=== PATIENT | female | born 1955 | race Caucasian/White ===

== ENCOUNTER → 2018-06-04 10:47 | Outpatient (CLI) | payer OTHER, MEDICAID, SELFPAY ==
--- NOTE | 2018-06-04 | DI.US.S_ITS ---
PROCEDURE: US PELVIC COMPLETE INDICATIONS: PAIN IN PELVIS TECHNIQUE: Real-time scanning was performed of the pelvic organs, with image documentation. Additional endovaginal scanning was necessary due to incomplete visualization of the adnexal and endometrial structures by transabdominal scanning. COMPARISON: None. FINDINGS: Transabdominal scanning: Limited scanning through the kidneys shows no hydronephrosis. No pathologic free abdominal or pelvic fluid. Endovaginal scanning: Uterus: Uterus is normal in size at 5.7 x 2.0 x 3.3 cm. The endometrium measures 2.3 mm in combined thickness. Ovaries: Right are not visualized. Normal left ovary measuring 2.7 x 1.2 x 1.1 cm. IMPRESSION: No source for pelvic pain identified. Dictated by: Davidson King [facility] Interpreted: Zac Metzger MD on 06/04/2018 at 12:55 Approved by: Zac Metzger M.D. on 06/04/2018 at 13:14
== END ==
PROVIDERS: PCP Physician Assistant Medical; Visit Provider Physician Assistant
DX: R10.2 Pelvic and perineal pain (principal)
CPT/HCPCS: 76830; 76856

== ENCOUNTER → 2021-02-01 15:08 | Outpatient (CLI) | payer MEDICARE, OTHER, SELFPAY ==
--- NOTE | 2021-02-01 | DI.US.S_ITS ---
PROCEDURE: US THYROID INDICATIONS: THYROID NODULE TECHNIQUE: Real-time scanning was performed of the thyroid gland, with image documentation. COMPARISON: [facility], US, THYROID, 02/28/2012, 12:48. FINDINGS: Right: Thyroid lobe measures 4.5 x 2.7 x 3.4 cm, and is homogeneous in echotexture. Left: Thyroid lobe measures 3.9 x 1.5 x 1.1 cm, and is homogenous in echotexture. Isthmus: 3 mm thick. Nodule number: 1 Location: Right mid-inferior Size: 3.5 x 2.4 x 3.0 cm. Composition: Solid Echogenicity: Hyperechoic Shape: Wider than tall Margins: Smooth Echogenic foci: None Total points: 3 ACR TI-RADS category: Mildly suspicious Nodule number: 2 Location: Right isthmus Size: 0.8 x 0.5 x 0.7 cm. Composition: Solid Echogenicity: Isoechoic Shape: Wider than tall Margins: Smooth Echogenic foci: Non Total points: 3 ACR TI-RADS category: Mildly suspicious IMPRESSION: 1. 3.5 x 2.4 x 3.0 centimeter right thyroid nodule which is mildly suspicious. Based on size greater than 2.5 centimeters ultrasound-guided fine needle aspiration is recommended. 2. 0.8 x 0.5 x 0.7 centimeter right isthmic nodule which is mildly suspicious. Based on size of less than 1.5 centimeters no additional surveillance is warranted. ACR TI-RADS definitions and recommendations: TI-RADS 1 (benign): 0 points. FNA not needed. TI-RADS 2 (not suspicious): 2 points. FNA not needed. TI-RADS 3 (mildly suspicious): 3 points. * FNA if 2.5 cm or larger, follow up if 1.5 cm or larger (at 1, 3, and 5 years). TI-RADS 4 (moderately suspicious): 4-6 points. * FNA if 1.5 cm or larger, follow up if 1 cm or larger (at 1, 2, 3, and 5 years). TI-RADS 5 (highly suspicious): 7 points or more. * FNA if 1 cm or larger, follow up if 0.5 cm or larger (every year for 5 years). Dictated by: Vianca Carrera MD, PhD on 02/06/2021 at 8:43 Approved by: Vianca Carrera MD, PhD on 02/06/2021 at 8:48
== END ==
PROVIDERS: PCP Physician Assistant Medical; Referring Provider Physician Assistant Medical; Visit Provider Physician Assistant Medical
DX: E04.2 Nontoxic multinodular goiter (principal)
CPT/HCPCS: 76536

== ENCOUNTER → 2021-03-07 14:21 | Outpatient (CLI) | payer MEDICARE, OTHER, SELFPAY ==
--- NOTE | 2021-03-07 | DI.US.S_ITS ---
PROCEDURE: US FINE NEEDLE ASPIRATION INDICATIONS: Nontoxic single thyroid nodule TECHNIQUE: The indications, alternatives, benefits, risks, and complications of the procedure were explained to the patient. Written informed consent was obtained and placed in the chart. The thyroid region was examined sonographically and a site was chosen for ultrasound guided percutaneous sampling. The skin was prepared and draped in the usual fashion, and anesthetized with 1% lidocaine infiltrated from the skin down to the thyroid gland. Multiple passes were then performed, with contents emptied into an appropriate pathology specimen container. A bandage was applied to the area of access at completion of the study. COMPARISON: None. FINDINGS: Location(s) of lesion(s) sampled: Inferior pole of the right lobe [place]: 22 and 25 gauge hypodermic needles. Number of passes: 6 Medications: 1% lidocaine for local anaesthesia. Complications: None. IMPRESSION: Successful ultrasound-guided thyroid nodule fine needle aspiration, with cytology results pending. Please see chart below for management recommendations based on cytology results. [facility] ReportingRecommendationsNon-diagnostic* Repeat US-guided FNA, with on-site cytology evaluation if possible. * Repeated non-diagnostic nodules without high suspicion US features: close observation vs surgical consult. * Consider surgery if nodule has high suspicion US features, grows >20% in 2 dimensions on followup, or patient has clinical risk factors for malignancy. Benign* If nodule has high suspicion US features: repeat US and FNA within 12 months. * If nodule has low to intermediate suspicion US features: repeat US at 12-24 months. If nodule grows (20% increase in at least 2 dimensions, with minimal increase of 2 mm or >50% change in volume), or development of new suspicious US features, then repeat FNA or continue followup. * If nodule has very low suspicion US features: followup US at >24 months. Atypia of undetermined significance, follicular lesion of undetermined significanceRepeat FNA, molecular testing, followup US, or surgical consult.Follicular neoplasm, suspicious for follicular neoplasmSurgical consult; also consider molecular testing. Suspicious for malignancySurgical consult.MalignantSurgical consult. Dictated by: Curly Hartley M.D. on 03/07/2021 at 16:58 Approved by: Curly Hartley M.D. on 03/07/2021 at 16:59
--- NOTE | 2021-03-07 | PATH_ITS ---
Note [facility] Accession Number: [id number] TESTS RESULT FLAG UNITS REF RANGE LAB Clinician Provided Cytology Information No. of containers..00 Previously Prepared Cytology Slide 35 Unknown Storage/container code(s) RIGHT THYROID MID/INFERIOR NODULE DIAGNOSIS: 01 RIGHT THYROID MID/INFERIOR NODULE NEGATIVE FOR MALIGNANT CELLS. [place] CATEGORY II. SPECIMEN CONSISTS OF ABUNDANT BENIGN FOLLICULAR CELLS, PRESENT MACROFOLLICLES, AND SCANT COLLOID, CONSISTENT WITH AN ADENOMATOID NODULE. Pathologist ICD10: 01 E04.1 01 FINDINGS: Right: Thyroid lobe measures 4.5 x 27 x 3.4 cm, and is homogeneous in echotexture. Left: Thyroid lobe measures 3.9 x 1.5 x 1.1 cm, and is homogenous in echotexture. Isthmus: 3 mm thick. 01 Jenn Shelley MD, Pathologist NPI- [id number] Mikey Oswald, Manager [employer] ([facility]) 01 30 CC, COLORLESS, CLEAR RECIEVED: IN CYTOLYT WITH 5 ALCOHOL FIXED AND 5 QUICK STAINED SLIDES ALSO 1 RNA VIAL WAS RECEIVED FOR FURTHER TESTING. /ERENDIRA 03/08/2021 0932 [facility] FLAG LEGEND: L-Low Normal,H-High Normal,LL-Alert Low,HH-Alert High <-Panic Low,>-Panic High,A-Abnormal,AA-Critical Abnormal Performed at: 01 =Z [facility] [address] [place] [address] [address] [facility] [place], [place] [address] César Morris MD, Performed at: 01 [facility] [address] [address], [place], [place] [id number] MD César Morris MD Phone: [phone]
== END ==
PROVIDERS: PCP Physician Assistant Medical; Referring Provider Physician Assistant Medical; Visit Provider Physician Assistant Medical
DX: E04.1 Nontoxic single thyroid nodule (principal)
CPT/HCPCS: 10005

== ENCOUNTER → 2023-02-23 15:51 | Outpatient (CLI) | payer MEDICARE, OTHER, SELFPAY | PROVIDERS: PCP Physician Assistant Medical; Visit Provider Nurse Practitioner Family | DX: L02.91 Cutaneous abscess, unspecified (principal) | CPT/HCPCS: 87070; 87075; 87077; 87147; 87186; 87205 ==